=== PATIENT | male | born 2005 | race Asian ===

== ENCOUNTER 2025-09-03 12:41 | Emergency (ER) | payer OTHER ==
[2025-09-03] MEDS ORDERED: Ketorolac Tromethamine 30 MG (1 mL) VIAL ONE (13:45)
[2025-09-03] MEDS ORDERED: Dexamethasone 10 MG/ML VIAL ONE (13:45)
== END 2025-09-03 14:15 | disposition home or self-care (01) ==
LOC: CSHERS 12:41
DX: M54.50 Low back pain, unspecified (principal)
CPT/HCPCS: 96372; 99283; J1100; J1885